=== PATIENT | male | born 1985 | race African-American/Black ===

== ENCOUNTER 2023-10-12 12:04 | Emergency (ER) | payer MEDICAID, OTHER ==
[~2023-10-12] VITALS: Ht 200.7 cm; Wt 65.8 kg
[2023-10-12 12:18] VITALS: BP 123/87; PULSE 112; RESP 20; O2SAT 100
[2023-10-12] MEDS ORDERED: SODIUM CHLORIDE 0.9% 1,000 ML IV ONE (12:30)
[2023-10-12] MEDS ORDERED: ONDANSETRON HCL 4 MG/2 ML VIAL IV ONE (12:30)
[2023-10-12] MEDS ORDERED: METOCLOPRAMIDE HCL 5MG/ml INJ 2ml VIAL IV ONE (13:00)
[2023-10-12] MEDS ORDERED: FAMOTIDINE INJECTION 40 MG in SODIUM CHL 0.9% 100 ML IV ONE (13:00)
[2023-10-12 13:25] LABS: Basophils # (auto) 0 10 ^3/uL (0-0.2); Basophils % (auto) 0.4 % (0.0-2.0); Eosinophils # (auto) 0 10 ^3/uL (0-0.8); Eosinophils % (auto) 0.1 % (0.0-7.0); Hematocrit 49.7 % (41.0-53.0); Lymphocytes # (auto) 2.4 10 ^3/uL (0.4-5.4); Lymphocytes % (auto) 24.8 % (10.0-50.0); Mean Corpuscular Hemoglobin 33.3 pg (28.0-32.0); Mean Corpuscular Hgb Conc. 34.3 g/dL (32.0-36.0); Monocytes # (auto) 1.7 10 ^3/uL (0-1.3); Monocytes % (auto) 17.2 % (0.0-12.0); Neutrophils # (auto) 5.6 10 ^3/uL (1.6-8.6); Neutrophils % (auto) 57.5 % (37.0-80.0); Nucleated Red Blood Cells % 0.1 %; Red Blood Cells 5.12 10^6/uL (4.5-5.90); Red Cell Distribution Width 13.1 % (11.8-14.3); White Blood Cell 9.7 10^3/uL (4.4-10.8)
[2023-10-12 14:04] LABS: Alanine Aminotransferase 55 U/L (7-40); Albumin 5.3 g/dL (3.2-4.8); Alkaline Phosphatase 66 U/L (46-116); Anion Gap 12 (5-15); Aspartate Aminotransferase 57 U/L (13-40); BUN/Creatinine Ratio 21.8 (10.0-20.0); Blood Urea Nitrogen 34 mg/dL (9-23); Carbon Dioxide 24 mmol/L (20-30); Chloride 99 mmol/L (98-107); Glucose 115 mg/dL (74-106); Lipase 47 U/L (12-53); Potassium 3.5 mmol/L (3.5-5.1); Sodium 135 mmol/L (136-145)
[2023-10-12 14:05] LABS: Bilirubin, Total 1.7 mg/dL (0.2-1.0); Total Protein 8.2 g/dL (5.7-8.2)
[2023-10-12] MEDS ORDERED: METO-281 PO (16:45)
[2023-10-12] MEDS ORDERED: FAMO20TA10 PO (16:45)
[2023-10-12 16:56] LABS: Urine Bacteria FEW /hpf (None Seen); Urine Blood Negative /uL (Negative); Urine Clarity HAZY (Clear); Urine Color Yellow (Yellow); Urine Mucus FEW (None Seen); Urine Protein, UAD 2+ (Negative); Urine WBC 7 /hpf (0 - 3)
== END 2023-10-12 19:42 | disposition home or self-care (01) ==
LOC: ER 12:04
DX: K29.00 Acute gastritis without bleeding (principal); F15.90 Other stimulant use, unspecified, uncomplicated; Z88.8 Allergy status to other drugs, medicaments and biological substances; Z79.899 Other long term (current) drug therapy
CPT/HCPCS: 36415; 74176; 76705; 80053; 81001; 83690; 84484; 85025; 99284; J3490

== ENCOUNTER 2024-11-10 14:34 | Emergency (ER) | payer MEDICAID ==
[~2024-11-10] VITALS: Ht 200.7 cm; Wt 65.1 kg
[~2024-11-10 14:34] MED LIST: FAMO20TA10 PO; METO-281 PO
[2024-11-10] MEDS: PANTOPRAZOLE 40 MG TAB PO ONE (15:56)
[2024-11-10] MEDS: PROCHLORPERAZINE MALEATE 10 MG TAB PO ONE (15:56)
[2024-11-10 16:00] LABS: Basophils # (auto) 0.1 10 ^3/uL (0-0.2); Eosinophils # (auto) 0 10 ^3/uL (0-0.8); Hemoglobin 17.9 g/dL (13.5-17.5); White Blood Cell 10.1 10^3/uL (4.4-10.8)
[2024-11-10 16:02] LABS: Basophils % (auto) 0.5 % (0.0-2.0); Eosinophils % (auto) 0.1 % (0.0-7.0); Hematocrit 51.4 % (41.0-53.0); Lymphocytes % (auto) 19.7 % (10.0-50.0); Mean Corpuscular Hemoglobin 32.7 pg (28.0-32.0); Mean Corpuscular Hgb Conc. 34.7 g/dL (32.0-36.0); Mean Corpuscular Volume 94.3 fL (80.0-100.0); Monocytes # (auto) 1.2 10 ^3/uL (0-1.3); Monocytes % (auto) 12.4 % (0.0-12.0); Neutrophils # (auto) 6.8 10 ^3/uL (1.6-8.6); Neutrophils % (auto) 67.3 % (37.0-80.0); Nucleated Red Blood Cells % 0.1 %; Platelet Count (auto) 296 10^3/uL (140-450); Red Blood Cells 5.46 10^6/uL (4.5-5.90); Red Cell Distribution Width 13.2 % (11.8-14.3)
[2024-11-10 16:13] LABS: Alanine Aminotransferase 33 U/L (7-40); Alkaline Phosphatase 76 U/L (46-116); Anion Gap 9 (5-15); Aspartate Aminotransferase 20 U/L (13-40); BUN/Creatinine Ratio 16.3 (10.0-20.0); Bilirubin, Total 0.8 mg/dL (0.2-1.0); Carbon Dioxide 28 mmol/L (20-31); Chloride 99 mmol/L (98-107); Lipase 28 U/L (12-53); Potassium 4.5 mmol/L (3.5-5.1); Sodium 136 mmol/L (136-145)
[2024-11-10 16:19] LABS: Albumin 5.6 g/dL (3.2-4.8); Blood Urea Nitrogen 26 mg/dL (9-23); Calcium 11.5 mg/dL (8.7-10.4); Glucose 125 mg/dL (74-106)
--- NOTE | 2024-11-10 16:19 | ED.PDOC ---
GI ASSESSMENT HPI Comments 39-year-old male who comes in with chief complaint of abdominal pain with vomiting. The patient describes the pain as cramping and states that he has been vomiting for the past three days. He states that the pain is a 7/10. He does admit to using marijuana. The patient denies any diarrhea. He has had these symptoms in the past. He was able to ambulate into the emergency department's without any difficulty. Chief Complaint: Abdominal Pain Time Seen by MD: 15:05 Primary Care Provider: NONE Reviewed Notes: Nurses Notes, Medications, Allergies (See list) Allergies: Coded Allergies: Amoxicillin (Verified Allergy, Unknown, 10/12/23) Home Meds Active Scripts Ondansetron Odt 4MG Tab (ZOFRAN PO) 4 Mg Tb, 4 MG PO Q8HP PRN for 5 Days, #15 TAB ODT TAB-DISSOLVE IN MOUTH, THEN SWALLOW Prov:RACHELLE NEVES MD 11/10/24 Pantoprazole Sodium Sesquihydr (Protonix) 40 Mg Tab, 40 MG PO DAILY, #30 TAB Prov:RACHELLE NEVES MD 11/10/24 Metoclopramide Hcl (Reglan) 10 Mg Tab, 10 MG PO TIDPRN PRN for 10 Days, #30 TAB Prov:HERMELINDA RAINEY DO 10/12/23 Famotidine (PEPCID TABLET) 20 Mg Tb, 1 TAB PO BID for 30 Days, #60 TAB 3 Refills Prov:HERMELINDA RAINEY DO 10/12/23 Information Source: Patient Mode of Arrival: Ambulatory Timing: Days (Started three days ago) Duration: Since onset Prehospital treatment: None Quality: Cramping Vomitus: Bilious Stool: Normal Severity: Moderate Recent: Other (Admits to marijuana use) Recent Hx of: None Pain Location: Epigastric Modifying Factors: Nothing Associated sign and symptoms: Nausea, Vomiting, Abdominal Pain Past Medical History PAST MEDICAL HISTORY: Denies Surgical History: Unknown Family History Family History: Family hx of DM, Family hx of Cancer, Family hx of heart corinna Social History Smoker: Non-Smoker Alcohol: Occasionally Drugs: Marijuana Lives In: Home Constitutional: denies: chills, diaphoresis, fatigue, fever, malaise, sweats, weakness, others EENTM: denies: blurred vision, double vision, ear bleeding, ear discharge, ear drainage, ear pain, ear ringing, eye pain, eye redness, hearing loss, mouth pain, mouth swelling, nasal discharge, nose bleeding, nose congestion, nose pain, photophobia, tearing, throat pain, throat swelling, voice changes, others Respiratory: denies: cough, hemoptysis, orthopnea, SOB at rest, shortness of breath, SOB with excertion, stridor, wheezing, others Cardiovascular: denies: chest pain, dizzy spells, diaphoresis, Dyspnea on exertion, edema, irregular heart beat, left arm pain, lightheadedness, pa lpitations, PND, syncope, others Gastrointestinal: reports: abdominal pain, nausea, vomiting; denies: abdomen distended, blood streaked bowels, constipated, diarrhea, dysphagia, difficulty swallowing, hematemesis, melena, poor appetite, poor fluid intake, rectal bleeding, rectal pain, others Genitourinary: denies: burning, dysuria, flank pain, frequency, hematuria, incontinence, penile discharge, penile sore, pain, testicle pain, testicle swelling, urgency, others Neurological: denies: dizziness, fainting, headache, left sided numbness, left sided weakness, numbness, paresthesia, pre-existing deficit, right sided numbness, right sided weakness, seizure, speech problems, tingling, tremors, weakness, others Musculoskeletal: denies: back pain, gout, joint pain, joint swelling, muscle pain, muscle stiffness, neck pain, others Integumetry: denies: bruises, change in color, change in hair/nails, dryness, laceration, lesions, lumps, rash, wounds, others Allergic/Immunocompromised: denies: Difficulty Healing, Frequent Infections, Hives, Itching, others Hematologic/Lymphatic: denies: anemia, blood clots, easy bleeding, easy bruising, swollen glands, others Endocrine: denies: excessive hunger, excessive sweating, excessive thirst, excessive urination, flushing, intolerance to cold, intolerance to heat, unexplained weight gain, unexplained weight loss, others Psychiatric: denies: anxiety, bipolar disorder, depression, hopeless, panic disorder, schizophrenia, sleepless, suicidal, others Physical Exam General Appearance: No Apparent Distress, Thin HEENT: Normal ENT Inspection, Pharynx Normal, TMs Normal Neck: Full Range of Motion, Non-Tender, Normal, Normal Inspection Respiratory: Chest Non-Tender, Lungs Clear, No Accessory Muscle Use, No Respiratory Distress, Normal Breath Sounds Cardiovascular: No Edema, No JVD, No Murmur, No Gallop, Normal Peripheral Pulses, Regular Rate/Rhythm Breast Exam: Deferred Gastrointestinal: No Organomegaly, Non Tender, No Pulsatile Mass, Normal Bowel Sounds, Soft Genitalia: Deferred Pelvic: Deferred Rectal: Deferred Extremities: No calf tenderness, Normal capillary refill, Normal inspection, Normal range of motion, Non-tender, No pedal edema Musculoskeletal : Apperance: Normal Neurologic: Alert, 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 Was a procedure done?: No GI differential Dx Differential Diagnosis: Gastritis/PUD, Gastroenteritis, Other (Hyperemesis cannabinoid) X-Ray, Labs, Meds, VS Vital Signs Date Time Temp Pulse Resp B/P (MAP) Pulse Ox O2 Delivery O2 Flow Rate FiO2 11/10/24 15:49 99 18 123/95 (104) 99 11/10/24 15:49 99 18 99 Room Air 11/10/24 14:54 97.5 121 18 145/86 (105) 97 Lab Test 11/10/24 15:48 Range/Units White Blood Count 10.1 4.4-10.8 10^3/uL Red Blood Count 5.46 4.5-5.90 10^6/uL Hemoglobin 17.9 H 13.5-17.5 g/dL Hematocrit 51.4 41.0-53.0 % Mean Corpuscular Volume 94.3 80.0-100.0 fL Mean Corpuscular Hemoglobin 32.7 H 28.0-32.0 pg Mean Corpuscular Hemoglobin Concent 34.7 32.0-36.0 g/dL Red Cell Distribution Width 13.2 11.8-14.3 % Platelet Count 296 140-450 10^3/uL Mean Platelet Volume 7.8 6.9-10.8 fL Neutrophils (%) (Auto) 67.3 37.0-80.0 % Lymphocytes (%) (Auto) 19.7 10.0-50.0 % Monocytes (%) (Auto) 12.4 H 0.0-12.0 % Eosinophils (%) (Auto) 0.1 0.0-7.0 % Basophils (%) (Auto) 0.5 0.0-2.0 % Neutrophils # (Auto) 6.8 1.6-8.6 10 ^3/uL Lymphocytes # (Auto) 2.0 0.4-5.4 10 ^3/uL Monocytes # (Auto) 1.2 0-1.3 10 ^3/uL Eosinophils # (Auto) 0 0-0.8 10 ^3/uL Basophils # (Auto) 0.1 0-0.2 10 ^3/uL Nucleated Red Blood Cells 0.1 % Sodium Level 136 136-145 mmol/L Potassium Level 4.5 3.5-5.1 mmol/L Chloride Level 99 98-107 mmol/L Carbon Dioxide Level 28 20-31 mmol/L Anion Gap 9 5-15 Blood Urea Nitrogen 26 H 9-23 mg/dL Creatinine 1.60 H 0.700-1.30 mg/dL Glomerular Filtration Rate Calc 56 >90 mL/min BUN/Creatinine Ratio 16.3 10.0-20.0 Serum Glucose 125 H 74-106 mg/dL Calcium Level 11.5 H 8.7-10.4 mg/dL Total Bilirubin 0.8 0.2-1.0 mg/dL Aspartate Amino Transferase (AST) 20 13-40 U/L Alanine Aminotransferase (ALT) 33 7-40 U/L Alkaline Phosphatase 76 46-116 U/L Total Protein 8.0 5.7-8.2 g/dL Albumin 5.6 H 3.2-4.8 g/dL Lipase 28 12-53 U/L Current Medications Medications (Trade) Dose Ordered Sig/Mayra Route Start Time Stop Time Status Last Admin Pantoprazole Sodium (Protonix Tablet) 40 mg ONCE ONCE PO 11/10/24 15:30 11/10/24 15:32 DC 11/10/24 15:56 Prochlorperazine Maleate (Compazine Tablet) 10 mg ONCE ONCE PO 11/10/24 15:30 11/10/24 15:32 DC 11/10/24 15:56 The patient was given Protonix 40 mg by mouth The patient was given Compazine 10 mg by mouth The CBC is within normal limits. The patient was given substance abuse counseling. At this time, the patient was being discharged The patient was given a prescription of Protonix and Zofran The patient will return to the emergency department's the condition worsens. Time of 1ST Reevaluation: 16:18 Reevaluation 1ST: Improved Patient Education/Counseling: Diagnosis, Treatment, Prognosis, Need For Follow Up Family Education/Counseling: No Family Present Departure 1 Departure Time of Disposition: 17:19 Impression: Primary Impression: Cannabinoid hyperemesis syndrome Disposition: HOME / SELF CARE / HOMELESS Condition: Fair e-Prescriptions Ondansetron Odt 4MG Tab (ZOFRAN PO) 4 Mg Tb 4 MG PO Q8HP PRN for 5 Days, #15 TAB ODT TAB-DISSOLVE IN MOUTH, THEN SWALLOW Prov: RACHELLE NEVES MD 11/10/24 Pantoprazole Sodium Sesquihydr (Protonix) 40 Mg Tab 40 MG PO DAILY, #30 TAB Prov: RACHELLE NEVES MD 11/10/24 Discharged With: Self Critical Care Note Critical Care Time?: No Stability Stability form required: No Heart Score Heart Score: Heart Score Response (Comments) Value History N/A 0 EKG N/A 0 Age N/A 0 Risk Factors N/A 0 Troponin N/A 0 Total 0 RACHELLE NEVES MD Nov 10, 2024 16:19
[2024-11-10] MEDS ORDERED: ZOFR4T PO (17:18)
[2024-11-10] MEDS ORDERED: PANT40TA2 PO (17:18)
[2024-11-10 18:29] VITALS: BP 124/91; PULSE 99; RESP 20; TEMP 98.3; O2SAT 100
== END 2024-11-10 19:31 | disposition home or self-care (01) ==
LOC: ER 14:34
DX: F12.90 Cannabis use, unspecified, uncomplicated (principal); R11.2 Nausea with vomiting, unspecified; F15.90 Other stimulant use, unspecified, uncomplicated; Z79.899 Other long term (current) drug therapy; Z88.1 Allergy status to other antibiotic agents
CPT/HCPCS: 36415; 80053; 83690; 85025; 99283; Q0164

== ENCOUNTER 2025-02-24 12:58 | Emergency (ER) | payer MEDICAID ==
[~2025-02-24] VITALS: Ht 200.7 cm; Wt 67.0 kg
[~2025-02-24 12:58] MED LIST changes: +PANT40TA2 PO; +ZOFR4T PO
--- NOTE | 2025-02-24 14:05 | ECG ---
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
--- NOTE | 2025-02-24 14:22 | ED.PDOC ---
History of Present Illness HPI Comments 39M presents to the Er w/ no prior MHx associated to the c/c of ABD pain. Pt reports on having sternal CP, RLQ pain, N/V for the past 5 months, losing 50lbs during that time. Pt notes that he does have a PCP but didn't not feel like going. Pt's pain Type is an 8/10. Social Hx of cigar use, occasional alcohol use, and marijuana use. Family Hx of DM and Cancer. Denies chills, fever, /D, SOB or other associated symptom's, modifiers, or recent injuries or sick contact at this time. Chief Complaint: Abdominal Pain Time Seen by MD: 14:00 Primary Care Provider: NONE Reviewed Notes: Nurses Notes, Medications, Allergies Allergies: Coded Allergies: Amoxicillin (Verified Allergy, Unknown, 10/12/23) Home Meds Active Scripts Ondansetron Odt 4MG Tab (ZOFRAN PO) 4 Mg Tb, 4 MG PO Q8HP PRN for 5 Days, #15 TAB ODT TAB-DISSOLVE IN MOUTH, THEN SWALLOW Prov:RACHELLE NEVES MD 11/10/24 Pantoprazole Sodium Sesquihydr (Protonix) 40 Mg Tab, 40 MG PO DAILY, #30 TAB Prov:RACHELLE NEVES MD 11/10/24 Metoclopramide Hcl (Reglan) 10 Mg Tab, 10 MG PO TIDPRN PRN for 10 Days, #30 TAB Prov:HERMELINDA RAINEY DO 10/12/23 Famotidine (PEPCID TABLET) 20 Mg Tb, 1 TAB PO BID for 30 Days, #60 TAB 3 Refills Prov:HERMELINDA RAINEY DO 10/12/23 Information Source: Patient Mode of Arrival: Ambulatory Severity: Moderate Timing: Months Duration: Since onset Prehospital treatment: None Past Medical History PAST MEDICAL HISTORY: Denies Surgical History: Unknown Family History Family History: Reviewed,noncontributory to illness, Family hx of DM, Family hx of Cancer Social History Smoker: Cigar Alcohol: Occasionally Drugs: Marijuana Lives In: Home Constitutional: denies: chills, diaphoresis, fatigue, fever, malaise, sweats, weakness, others EENTM: denies: blurred vision, double vision, ear bleeding, ear discharge, ear drainage, ear pain, ear ringing, eye pain, eye redness, hearing loss, mouth pain, mouth swelling, nasal discharge, nose bleeding, nose congestion, nose pain, photophobia, tearing, throat pain, throat swelling, voice changes, others Respiratory: denies: cough, hemoptysis, orthopnea, SOB at rest, shortness of breath, SOB with excertion, stridor, wheezing, others Cardiovascular: reports: chest pain; denies: dizzy spells, diaphoresis, Dyspnea on exertion, edema, irregular heart beat, left arm pain, lightheadedness, palpitations, PND, syncope, others Gastrointestinal: reports: abdominal pain, nausea, vomiting; denies: abdomen distended, blood streaked bowels, constipated, diarrhea, dysphagia, difficulty swallowing, hematemesis, melena, poor appetite, poor fluid intake, rectal bleeding, rectal pain, others Genitourinary: denies: burning, dysuria, flank pain, frequency, hematuria, incontinence, penile discharge, penile sore, pain, testicle pain, testicle swelling, urgency, others Neurological: denies: dizziness, fainting, headache, left sided numbness, left sided weakness, numbness, paresthesia, pre-existing deficit, right sided numbness, right sided weakness, seizure, speech problems, tingling, tremors, weakness, others Musculoskeletal: denies: back pain, gout, joint pain, joint swelling, muscle pain, muscle stiffness, neck pain, others Integumetry: denies: bruises, change in color, change in hair/nails, dryness, laceration, lesions, lumps, rash, wounds, others Allergic/Immunocompromised: denies: Difficulty Healing, Frequent Infections, Hives, Itching, others Hematologic/Lymphatic: denies: anemia, blood clots, easy bleeding, easy bruising, swollen glands, others Endocrine: reports: unexplained weight loss; denies: excessive hunger, excessive sweating, excessive thirst, excessive urination, flushing, intolerance to cold, intolerance to heat, unexplained weight gain, others Psychiatric: denies: anxiety, bipolar disorder, depression, hopeless, panic disorder, schizophrenia, sleepless, suicidal, others All Other Systems: Reviewed and Negative Physical Exam General Appearance: No Apparent Distress, Thin HEENT: Normal ENT Inspection, Pharynx Normal, TMs Normal Neck: Full Range of Motion, Non-Tender, Normal, Normal Inspection Respiratory: Chest Non-Tender, Lungs Clear, No Accessory Muscle Use, No Res piratory Distress, Normal Breath Sounds Cardiovascular: No Edema, No JVD, No Murmur, No Gallop, Normal Peripheral Pulses, Regular Rate/Rhythm Breast Exam: Deferred Gastrointestinal: No Organomegaly, Non Tender, No Pulsatile Mass, Normal Bowel Sounds, Soft Genitalia: Deferred Pelvic: Deferred Rectal: Deferred Extremities: No calf tenderness, Normal capillary refill, Normal inspection, Normal range of motion, Non-tender, No pedal edema Musculoskeletal : Apperance: Normal Neurologic: Alert, 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 Was a procedure done?: No EKG EKG : Pulse Rate (adult): 103 Purdys: Normal Cardiac Rhythm: ST Block: None Hypertrophy: LAE ST: Normal Differential Dx Considerations may include: Generalized weakness, electrolyte imbalance, dehydration, marijuana use X-Ray, Labs, Meds, VS Vital Signs Date Time Temp Pulse Resp B/P (MAP) Pulse Ox O2 Delivery O2 Flow Rate FiO2 02/24/25 14:22 103 02/24/25 13:14 103 02/24/25 13:03 98.1 120 16 122/85 (97) 98 98.1 Lab Test 02/24/25 14:39 Range/Units White Blood Count 9.9 4.4-10.8 10^3/uL Red Blood Count 5.18 4.5-5.90 10^6/uL Hemoglobin 16.6 13.5-17.5 g/dL Hematocrit 47.2 41.0-53.0 % Mean Corpuscular Volume 91.0 80.0-100.0 fL Mean Corpuscular Hemoglobin 31.9 28.0-32.0 pg Mean Corpuscular Hemoglobin Concent 35.1 32.0-36.0 g/dL Red Cell Distribution Width 12.9 11.8-14.3 % Platelet Count 233 140-450 10^3/uL Mean Platelet Volume 7.7 6.9-10.8 fL Neutrophils (%) (Auto) 68.3 37.0-80.0 % Lymphocytes (%) (Auto) 23.5 10.0-50.0 % Monocytes (%) (Auto) 7.2 0.0-12.0 % Eosinophils (%) (Auto) 0.2 0.0-7.0 % Basophils (%) (Auto) 0.8 0.0-2.0 % Neutrophils # (Auto) 6.8 1.6-8.6 10 ^3/uL Lymphocytes # (Auto) 2.3 0.4-5.4 10 ^3/uL Monocytes # (Auto) 0.7 0-1.3 10 ^3/uL Eosinophils # (Auto) 0 0-0.8 10 ^3/uL Basophils # (Auto) 0.1 0-0.2 10 ^3/uL Nucleated Red Blood Cells 0.2 % Sodium Level 136 136-145 mmol/L Potassium Level 3.7 3.5-5.1 mmol/L Chloride Level 100 98-107 mmol/L Carbon Dioxide Level 28 20-31 mmol/L Anion Gap 8 5-15 Blood Urea Nitrogen 15 9-23 mg/dL Creatinine 1.17 0.700-1.30 mg/dL Glomerular Filtration Rate Calc 81 >90 mL/min BUN/Creatinine Ratio 12.8 10.0-20.0 Serum Glucose 104 74-106 mg/dL Calcium Level 9.2 8.7-10.4 mg/dL Total Bilirubin 1.4 H 0.2-1.0 mg/dL Aspartate Amino Transferase (AST) 76 H 13-40 U/L Alanine Aminotransferase (ALT) 35 7-40 U/L Alkaline Phosphatase 56 46-116 U/L Total Protein 6.9 5.7-8.2 g/dL Albumin 4.8 3.2-4.8 g/dL Lipase 46 12-53 U/L Current Medications Medications (Trade) Dose Ordered Sig/Mayra Route Start Time Stop Time Status Last Admin Sodium Chloride 1,000 ml @ 1,000 mls/hr Q1H ONCE IVB 02/24/25 14:30 02/24/25 15:29 DC 02/24/25 16:55 IMPRESSION: 1. No acute abdominal or pelvic finding. Radiation optimization: All CT scans at this facility use at least one of these dose optimization techniques: Automated exposure control mA and/or kV adjustment per patient size (includes targeted exams where dose is matched to clinical indication) or iterative reconstruction. IMPRESSION: 1. No evidence of acute disease. 2. Chronic obstructive pulmonary disease :Y We did explain to the patient that he would have to follow up with his primary care doctor The chest x-ray is negative The patient's CBC is within normal limits The chemistry panel is within normal limits The patient is discharged The patient is advised to still follow up with his primary care doctor for a workup The patient was given information on marijuana use. Images Reviewed?: Images reviewed and evaluated by me Time of 1ST Reevaluation: 14:30 Reevaluation 1ST: Unchanged Patient Education/Counseling: Diagnosis, Treatment, Prognosis, Need For Follow Up Family Education/Counseling: No Family Present Departure 1 Departure Time of Disposition: 17:08 Impression: Primary Impression: Cannabinoid hyperemesis syndrome Additional Impression: Unexplained weight loss Disposition: 01 HOME / SELF CARE / HOMELESS Condition: Fair Discharged With: Self Critical Care Note Critical Care Time?: No Stability Stability form required: No Heart Score Heart Score: Heart Score Response (Comments) Value History N/A 0 EKG N/A 0 Age N/A 0 Risk Factors N/A 0 Troponin N/A 0 Total 0 I personally scribed for RACHELLE NEVES MD ([email or web address]) on 02/24/25 at 14:22. Electronically submitted by Glen Bailey ([employer]). I personally scribed for RACHELLE NEVES MD ([email or web address]) on 02/24/25 at 16:25. Electronically submitted by Glen Bailey ([employer]). I personally scribed for RACHELLE NEVES MD ([email or web address]) on 02/24/25 at 17:00. Electronically submitted by Glen Bailey ([employer]). RACHELLE NEVES MD February 24, 2025 14:22
[2025-02-24 14:50] LABS: Basophils # (auto) 0.1 10 ^3/uL (0-0.2); Basophils % (auto) 0.8 % (0.0-2.0); Eosinophils # (auto) 0 10 ^3/uL (0-0.8); Eosinophils % (auto) 0.2 % (0.0-7.0); Hematocrit 47.2 % (41.0-53.0); Hemoglobin 16.6 g/dL (13.5-17.5); Lymphocytes # (auto) 2.3 10 ^3/uL (0.4-5.4); Lymphocytes % (auto) 23.5 % (10.0-50.0); Mean Corpuscular Hemoglobin 31.9 pg (28.0-32.0); Mean Corpuscular Hgb Conc. 35.1 g/dL (32.0-36.0); Monocytes # (auto) 0.7 10 ^3/uL (0-1.3); Monocytes % (auto) 7.2 % (0.0-12.0); Neutrophils # (auto) 6.8 10 ^3/uL (1.6-8.6); Neutrophils % (auto) 68.3 % (37.0-80.0); Nucleated Red Blood Cells % 0.2 %; Platelet Count (auto) 233 10^3/uL (140-450); Red Blood Cells 5.18 10^6/uL (4.5-5.90); Red Cell Distribution Width 12.9 % (11.8-14.3); White Blood Cell 9.9 10^3/uL (4.4-10.8)
[2025-02-24 15:05] LABS: Alanine Aminotransferase 35 U/L (7-40); Albumin 4.8 g/dL (3.2-4.8); Alkaline Phosphatase 56 U/L (46-116); Anion Gap 8 (5-15); Aspartate Aminotransferase 76 U/L (13-40); BUN/Creatinine Ratio 12.8 (10.0-20.0); Bilirubin, Total 1.4 mg/dL (0.2-1.0); Blood Urea Nitrogen 15 mg/dL (9-23); Calcium 9.2 mg/dL (8.7-10.4); Carbon Dioxide 28 mmol/L (20-31); Chloride 100 mmol/L (98-107); Glucose 104 mg/dL (74-106); Lipase 46 U/L (12-53); Potassium 3.7 mmol/L (3.5-5.1); Sodium 136 mmol/L (136-145); Total Protein 6.9 g/dL (5.7-8.2)
--- NOTE | 2025-02-24 16:19 | DVH ---
Exam: CT CT AB PEL WITH IV CON ONLY History: pain COMPARISON: 10/12/2023 Technique: Multidetector spiral CT of the abdomen and pelvis was performed from lung bases to pubic symphysis. Intravenous contrast was administered during this examination. Portal venous imaging was obtained. Axial, coronal and sagittal multiplanar reformats were performed by the technologist on a separate workstation. Radiation Dose : Abdomen/Pelvis: CTDIvol 5.41 mGy, DLP 279.3 mGy*cm. CONTRAST: Type of contrast: Omni 300 Contrast injected: 80 mL Findings: Lung Bases: No acute or significant lung base finding. Normal heart size. No pleural or pericardial effusion. Liver: The liver is normal in size. No focal lesions. Normal hepatic vascular enhancement. Gallbladder and biliary Tree: Unremarkable Spleen: Unremarkable Pancreas: The pancreas is normal in appearance without focal lesions or abnormal enhancement. Adrenal Glands: Unremarkable Kidneys: No hydronephrosis. Bladder: Unremarkable Bowel: The stomach is grossly normal in appearance. Small bowel and colon are normal in caliber and d istribution. Normal appendix is visualized in the right lower quadrant without findings of appendicit is. Ascites: Absent Lymphadenopathy: No mesenteric, retroperitoneal or periportal lymphadenopathy. Abdominal wall and Mesentery: Unremarkable. Vasculature: The visualized abdominal aorta is normal in size and caliber. Abdominal and pelvic vess els demonstrate normal enhancement. Pelvic Organs: Unremarkable Musculoskeletal: No aggressive focal bony lesions, acute fractures or dislocation. IMPRESSION: 1. No acute abdominal or pelvic finding. Radiation optimization: All CT scans at this facility use at least one of these dose optimization buddy hniques: Automated exposure control mA and/or kV adjustment per patient size (includes targeted exams where dose is matched to clinical indication) or iterative reconstruction. HS:Y
[2025-02-24] MEDS: IOHEXOL 300 MG/ML 100ML BOTTLE IJ ONE (16:29)
[2025-02-24 16:45] VITALS: BP 123/85; PULSE 95; RESP 16; TEMP 98.4; O2SAT 99
--- NOTE | 2025-02-24 16:53 | DVH ---
CHEST RADIOGRAPH Indication: CP Technique: Frontal and lateral view of the chest was obtained Comparison: None FINDINGS: Lines and Tubes: None Lungs: Clear. Hyperaeration of the lung with flattening of both hemidiaphragms suggesting chronic ob structive lung disease Pleura: No effusion. No pneumothorax. Cardiomediastinal contours: Unremarkable Bones: Unremarkable IMPRESSION: 1. No evidence of acute disease. 2. Chronic obstructive pulmonary disease
[2025-02-24] MEDS: SODIUM CHLORIDE 0.9% 1,000 ML IVB ONE (16:55)
== END 2025-02-24 17:44 | disposition home or self-care (01) ==
LOC: ER 12:58
DX: F12.90 Cannabis use, unspecified, uncomplicated (principal); R11.2 Nausea with vomiting, unspecified; R63.4 Abnormal weight loss; F17.290 Nicotine dependence, other tobacco product, uncomplicated; J44.9 Chronic obstructive pulmonary disease, unspecified; Z79.899 Other long term (current) drug therapy; Z88.0 Allergy status to penicillin
CPT/HCPCS: 36415; 71046; 74177; 80053; 83690; 85025; 93005; 99285; Q9967

== ENCOUNTER 2025-04-10 20:57 | Emergency (ER) | payer MEDICAID ==
[~2025-04-10] VITALS: Ht 200.7 cm; Wt 67.9 kg
[2025-04-10 20:57] VITALS: BP 136/86; PULSE 93; RESP 16; TEMP 98.7; O2SAT 95
[2025-04-10] MEDS: KETOROLAC TROMETH 30 MG/ML 1ML VIAL IM ONE (21:20)
--- NOTE | 2025-04-10 21:28 | ED.PDOC ---
History of Present Illness HPI Comments 39-year-old male presents with pain and deformity to 3rd digit of left hand status post mechanical fall injury. Patient reports playing football, this evening, and jabbing his 3rd digit of his left hand in an attempt to break his fall after tripping when running backwards. Patient denies having any prior i njuries to that what I was 3rd digit in addition to of losing consciousness, sustaining any additional injuries, or having any numbness, tingling, or further associated symptoms. Chief Complaint: Upper Extremity Time Seen by MD: 21:10 Primary Care Provider: NONE Reviewed Notes: Nurses Notes, Medications, Allergies Allergies: Coded Allergies: Amoxicillin (Verified Allergy, Unknown, 10/12/23) Home Meds Active Scripts Ondansetron Odt 4MG Tab (ZOFRAN PO) 4 Mg Tb, 4 MG PO Q8HP PRN for 5 Days, #15 TAB ODT TAB-DISSOLVE IN MOUTH, THEN SWALLOW Prov:RACHELLE NEVES MD 11/10/24 Pantoprazole Sodium Sesquihydr (Protonix) 40 Mg Tab, 40 MG PO DAILY, #30 TAB Prov:RACHELLE NEVES MD 11/10/24 Metoclopramide Hcl (Reglan) 10 Mg Tab, 10 MG PO TIDPRN PRN for 10 Days, #30 TAB Prov:HERMELINDA RAINEY DO 10/12/23 Famotidine (PEPCID TABLET) 20 Mg Tb, 1 TAB PO BID for 30 Days, #60 TAB 3 Refills Prov:HERMELINDA RAINEY DO 10/12/23 Information Source: Patient Mode of Arrival: Ambulatory Past Medical History PAST MEDICAL HISTORY: Denies Surgical History: Unknown Family History Family History: Reviewed,noncontributory to illness, Family hx of DM, Family hx of Cancer Social History Smoker: Cigar Alcohol: Occasionally Drugs: Marijuana Lives In: Home All Other Systems: Reviewed and Negative (Comprehensive systems review obtained and negative except for what is stated in the HPI.) Physical Exam General Appearance: No Apparent Distress, Thin HEENT: Normal ENT Inspection, Pharynx Normal, TMs Normal Neck: Full Range of Motion, Non-Tender, Normal, Normal Inspection Respiratory: Chest Non-Tender, Lungs Clear, No Accessory Muscle Use, No Respiratory Distress, Normal Breath Sounds Cardiovascular: No Edema, No JVD, No Murmur, No Gallop, Normal Peripheral Pulses, Regular Rate/Rhythm Breast Exam: Deferred Gastrointestinal: No Organomegaly, Non Tender, No Pulsatile Mass, Normal Bowel Sounds, Soft Genitalia: Deferred Pelvic: Deferred Rectal: Deferred Extremities: No calf tenderness, Normal capillary refill, Normal range of motion, Non-tender, No pedal edema, Tender (PIP joint of the left hand), Other (Left hand PIP joint shows obvious deformity) Musculoskeletal : Location: Left Extremity Location: Finger 3 Apperance: Deformity, Tenderness Neurologic: Alert, acupressure therapist 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 Was a procedure done?: Yes Sedation Sedation?: No Reduction Indication: Dislocation Sedation: Consents obtained, Other (PIP joint, Left hand ) Intra-articular anesthetic shahnaz: No Nerve Block: Other (none) Post-reduction x-ray show: Reduction, Good Alignment Informed consent obtained: Yes Risks/benefits/alt described: Yes Notes Reduction of PIP joint was successful, patient tolerated procedure Differential Dx Considerations may include: Dislocation, fracture, contusions, bruising, sprain, among others X-Ray, Labs, Meds, VS Vital Signs Date Time Temp Pulse Resp B/P (MAP) Pulse Ox O2 Delivery O2 Flow Rate FiO2 04/10/25 20:57 98.7 93 16 136/86 (103) 95 98.7 Current Medications Medications (Trade) Dose Ordered Sig/Mayra Route Start Time Stop Time Status Last Admin Ketorolac Tromethamine (Toradol Injection) 30 mg ONCE ONCE IM 04/10/25 21:30 04/10/25 21:31 DC 04/10/25 21:20 X-Ray, Labs, Meds, VS Comment Imaging: X-rays and CT scans were reviewed and interpreted by this provider, imaging shows no fractures and no pathological disease. Pending radiology jay wRadha Laboratory: Labs reviewed and interpreted by this provider. No significant abnormalities noted. Patient has prior medical visits reviewed. Med reconciliation performed Vital signs reviewed Time of 1ST Reevaluation: 21:40 Reevaluation 1ST: Improved Patient Education/Counseling: Diagnosis, Treatment, Need For Follow Up (Follow up with PCP in next available appointment.) Family Education/Counseling: No Family Present Additional Information Previous visits reviewed: N/A The following tests were ordered, and results were reviewed by me: Left 3rd finger x-ray Additional Information was gathered from interviewing the following independent historians: N/A I reviewed and agreed with the following test results read by other providers: Left 3rd finger x-ray I discussed treatment and results with medical personnel and: patient SEPSIS Sepsis Screen Date sepsis recognized/suspect: Apr 10, 2025 Time Sepsis recognized/suspect: 2104 Recent Procedure: No On Antibiotic Therapy: No Respiratory Rate >20: No Heart Rate >90: Yes (HR 93) Temp<36 C (96.8 F) or >38.3 C: No SBP <90 or MAP <65 mmHG: No New Acute Mental Status Change: No Is the patient on CPAP, BIPAP,: No Physician Orders L 3rd Finger Xray (04/10/25 21:17) Vital Signs Date Time Temp Pulse Resp B/P (MAP) Pulse Ox O2 Delivery O2 Flow Rate FiO2 04/10/25 20:57 98.7 93 16 136/86 (103) 95 98.7 Medications Medications Dose Ordered Sig/Mayra Route Start Time Stop Time Status Last Admin Dose Admin Ketorolac Tromethamine 30 mg ONCE ONCE IM 04/10/25 21:30 04/10/25 21:31 DC 04/10/25 21:20 Departure 1 Departure Time of Disposition: 22:20 Impression: Primary Impression: Dislocation of left middle finger Qualified Codes: S63.253A - Unspecified dislocation of left middle finger, initial encounter Disposition: HOME / SELF CARE / HOMELESS Condition: Good Discharged With: Self Critical Care Note Critical Care Time?: No Stability Stability form required: No Heart Score Heart Score: Heart Score Response (Comments) Value History N/A 0 EKG N/A 0 Age N/A 0 Risk Factors N/A 0 Troponin N/A 0 Total 0 I personally scribed for ALYSSA COKER HEALTH TECHNICIAN ([email or web address]) on 04/10/25 at 21:28. Electronically submitted by Elías Roman ([email or web address]). I personally scribed for ALYSSA COKER HEALTH TECHNICIAN ([email or web address]) on 04/10/25 at 21:51. Electronically submitted by Elías Roman ([email or web address]). ALYSSA COKER HEALTH TECHNICIAN Apr 10, 2025 21:28
--- NOTE | 2025-04-10 22:08 | DVH ---
CLINICAL INDICATION: fall injury TECHNIQUE: 3 radiographic views of the 3rd digit were obtained. Comparison: None FINDINGS/IMPRESSION: There is no evidence of acute fracture or dislocation. There is a punctate calcification at the proximal interphalangeal joint left 3rd digit on the ulnar s elizabeth. Correlate clinically for tenderness in this area The visualized joint space is well maintained. The alignment is anatomical. There is no radiopaque foreign body.
== END 2025-04-10 23:11 | disposition home or self-care (01) ==
LOC: ER 20:57
DX: S63.253A Unspecified dislocation of left middle finger, initial encounter (principal); F17.290 Nicotine dependence, other tobacco product, uncomplicated; Z79.899 Other long term (current) drug therapy; Z88.0 Allergy status to penicillin; W18.39XA Other fall on same level, initial encounter; Y93.61 Activity, american tackle football; Y92.89 Other specified places as the place of occurrence of the external cause; Y99.8 Other external cause status
CPT/HCPCS: 26770; 73140; 96372; 99284; J1885